=== PATIENT | female | born 1960 | race Caucasian/White ===

== ENCOUNTER 2018-01-31 06:29 | Day surgery (SDC) | payer BC ==
[~2018-01-31 06:29] MED LIST: Midazolam 1 MG/ML 2 ML SDV ONE; Sodium Chloride 0.9% 10 ML Syringe FLUSH PRN; fentaNYL 100 MCG/2 ML SDV ONE
[2018-01-31] MEDS ORDERED: fentaNYL 100 MCG/2 ML SDV IV ONE ×4 (06:30→07:12)
[2018-01-31] MEDS ORDERED: Midazolam 1 MG/ML 2 ML SDV IV ONE ×7 (06:30→07:09)
--- NOTE | 2018-01-31 07:49 | OR ---
DATE: 01/31/2018 PROCEDURE PERFORMED: Total colonoscopy and NBI. INSTRUMENT USED: PCF-H180 AL Olympus video colonoscope. PREMEDICATIONS: Fentanyl 125 mcg intravenous, Versed 4 mg intravenous. Nasal O2 cannula. The procedure was done under pulse oximetry, BP recording, and radiation monitor. INDICATION: Screening colonoscopic examination is done for detection of any polypoid lesions and removal, endoscopic hemostasis therapy if needed. Initial rectal exam showed large external hemorrhoidal tags. Rigid anoscopy showed moderate-sized internal hemorrhoids without bleeding from them. DESCRIPTION OF PROCEDURE: The colonoscope was passed with ease. Numerous scattered diverticula were noted in the distal left colon along with deformity. The scope was passed with ease up to the ileocecal area. There was moderate amount of fecal material that had to be aspirated clear. No bleeding was noted from any of the visualized areas at the commencement of the examination. Photographs were taken of the cecum showing angiodysplastic area without bleeding from it. NBI views were obtained. No stricture. No polypoid tumor mass identified. No evidence of diffuse inflammatory bowel disease in the form of friability, contact bleeding, or ulcerations. Probing the proximal sides of folds and flexures, using adequate distention and clearing up the stool material, withdrawal of the scope was made, cecum to rectum time over 6 minutes. No bleeding was noted from any of the visualized areas at the completion of examination. IMPRESSION: 1. External and internal hemorrhoids. 2. Diverticulosis. 3. Cecal angiodysplasia. The patient tolerated the procedure well. [facility] /[id number]
[2018-01-31] MEDS ORDERED: Sodium Chloride 0.9% 10 ML Syringe FLUSH PRN (08:00)
[2018-01-31] MEDS ORDERED: Dextrose 5%-0.45% NaCl 1,000 ML IV SCH (08:00)
== END 2018-01-31 09:33 | disposition home or self-care (01) ==
LOC: DL.ENDO 06:29
PROVIDERS: ATTEND Internal Medicine Gastroenterology
DX: Z12.11 Encounter for screening for malignant neoplasm of colon (principal); K55.20 Angiodysplasia of colon without hemorrhage; K57.30 Diverticulosis of large intestine without perforation or abscess without bleeding; K64.8 Other hemorrhoids; K64.4 Residual hemorrhoidal skin tags; Z87.891 Personal history of nicotine dependence
CPT/HCPCS: 45378; J2250; J3010; J7042

== ENCOUNTER 2022-08-08 21:06 | Emergency (ER) | payer BC ==
[2022-08-08 21:48] LABS: PTT,PARTIAL THROMBOPLSTIN TIME 30.9 SEC (22.0-34.0)
[2022-08-08 21:59] LABS: AMPHETAMINES,URINE NEGATIVE (NEGATIVE); BARBITURATES,URINE NEGATIVE (NEGATIVE); BENZODIAZEPINE,URINE NEGATIVE (NEGATIVE); MDMA (ECSTASY), URINE NEGATIVE (NEGATIVE); METHADONE,URINE NEGATIVE (NEGATIVE); METHAMPHETAMINES,URINE NEGATIVE (NEGATIVE); OPIATES,URINE NEGATIVE (NEGATIVE); OXYCODONE,URINE NEGATIVE (NEGATIVE); PHENCYCLIDINE,URINE NEGATIVE (NEGATIVE); TCA,URINE NEGATIVE (NEGATIVE)
[2022-08-08 21:59] LABS: ANION GAP 15.8 mEq/L (7-13); CHLORIDE,CL 102 mmol/L (98-107); SODIUM,NA 139 mmol/L (136-145)
[2022-08-08 22:02] LABS: ESTIMATED GFR 76 mL/min (>=60)
[2022-08-08 22:27] LABS: CORONAVIRUS COVID-19 NAA NEGATIVE (NEGATIVE); RESPIRATORY SYNCYTIAL VIR NAA NEGATIVE (NEGATIVE)
[2022-08-08] MEDS ORDERED: Ondansetron 4 MG/2 ML SDV IVPUSH ONE (22:33)
== END 2022-08-08 23:44 | disposition home or self-care (01) ==
LOC: DL.ED 21:06
DX: I49.3 Ventricular premature depolarization (principal); R11.2 Nausea with vomiting, unspecified; Z72.0 Tobacco use; Z20.822 Contact with and (suspected) exposure to COVID-19
CPT/HCPCS: 0241U; 36415; 71045; 80053; 80305; 80307; 81001; 82150; 83605; 83690; 83735; 83880; 84443; 84484; 85025; 85610; 85730; 86140; 93005; 99285; J2405

== ENCOUNTER 2023-08-04 02:24 | Inpatient (IN) | payer BC ==
[2023-08-04 03:10] LABS: BASOPHILS PERCENT AUTO 0.2 % (0.0-1.0); EOSINOPHILS PERCENT AUTO 0.9 % (1.0-3.0); HEMATOCRIT 42.7 % (37.0-47.0); HEMOGLOBIN 14.2 g/dL (12.0-16.0); LYMPHOCYTES PERCENT AUTO 8.3 % (20.5-50.1); MEAN CORPUSCULAR HEMOGLOBIN 31.5 pg (27.0-34.0); MEAN CORPUSCULAR HGB CONC 33.3 g/dL (33.0-35.0); MEAN CORPUSCULAR VOLUME 94.7 fL (80-100); MONOCYTES PERCENT AUTO 5.2 % (2-8); NEUTROPHILS PERCENT AUTO 85.4 % (42.2-75.2); PLATELET COUNT,PLT 269 10^3/uL (150-450); RED BLOOD CELL COUNT 4.51 10^6/uL (4.2-5.4)
[2023-08-04] MEDS: methylPREDNISolone Sodium Succinate 125 MG/2 ML SDV IVPUSH ONE (03:10)
[2023-08-04] MEDS: Sodium Chloride 0.9% 10 ML Syringe FLUSH PRN (03:18)
[2023-08-04] MEDS: Albuterol/Ipratropium 3.0-0.5 MG/3 ML Neb Soln NEB ONE (03:36)
[2023-08-04 03:37] LABS: B-TYPE NATRIURETIC PEPTIDE,BNP 242 pg/ml (0-100)
[2023-08-04 03:41] LABS: PROTHROMBIN TIME 10.5 SEC (9.0-12.0); PTT,PARTIAL THROMBOPLSTIN TIME 26.3 SEC (22.0-34.0)
[2023-08-04] MEDS: Sodium Chloride 0.9% 1,000 ML IV ONE (04:19)
[2023-08-04 04:23] LABS: A/G RATIO 0.9; ALANINE AMINOTRANSFERASE,ALT 33 U/L (14-59); ALBUMIN 3.6 g/dL (3.4-5.0); ALKALINE PHOSPHATASE 132 U/L (46-116); ANION GAP 15.5 mEq/L (7-13); ASPARTATE AMNIOTRANSFERASE,AST 24 U/L (15-37); BILIRUBIN TOTAL 0.6 mg/dL (0.2-1.0); BLOOD UREA NITROGEN,BUN 18 mg/dL (7-18); BUN/CREATININE RATIO 15.4 (No establ ref range); C-REACTIVE PROTEIN 0.62 ng/dL (<=0.50); CALCIUM 8.6 mg/dL (8.5-10.1); CARBON DIOXIDE,CO2 26 mmol/L (21-32); CHLORIDE,CL 100 mmol/L (98-107); CREATININE 1.17 mg/dL (0.55-1.02); GLUCOSE RANDOM 271 mg/dL (70-99); MAGNESIUM 1.8 mg/dL (1.8-2.4); POTASSIUM,K 3.5 mmol/L (3.5-5.1); PROTEIN TOTAL,TP 7.4 g/dL (6.4-8.2); SODIUM,NA 138 mmol/L (136-145)
[2023-08-04 04:25] LABS: LACTIC ACID 2.4 mmol/L (0.4-2.0)
[2023-08-04 04:26] LABS: ESTIMATED GFR 52 mL/min (>=60)
[2023-08-04 04:28] LABS: CORONAVIRUS COVID-19 NAA NEGATIVE (NEGATIVE); INFLUENZA A NAA NEGATIVE (NEGATIVE); INFLUENZA B NAA NEGATIVE (NEGATIVE)
[2023-08-04] MEDS: Piperacillin/Tazobactam 4.5 GM in Sodium Chloride 0.9% 100 ML IV ONE (04:49)
[2023-08-04 05:29] LABS: RESPIRATORY SYNCYTIAL VIR NAA NEGATIVE (NEGATIVE)
[2023-08-04] MEDS: Albuterol/Ipratropium 3.0-0.5 MG/3 ML Neb Soln ONE (07:16)
[2023-08-04] MEDS: Furosemide 40 MG/4 ML VIAL IV ONE (07:28)
[2023-08-04] MEDS ORDERED: Sennosides/Docusate Sodium 50-8.6 MG Tab PO PRN (10:52)
[2023-08-04] MEDS ORDERED: Acetaminophen 325 MG Tab PO PRN (10:52)
[2023-08-04] MEDS ORDERED: Polyethylene Glycol 3350 Powder 17 GM Packet PO PRN (10:52)
[2023-08-04] MEDS ORDERED: Magnesium Hydroxide 400 MG/5 ML Susp 30 ML Cup PO PRN (10:52)
[2023-08-04] MEDS ORDERED: Naloxone 2 MG/2 ML Syringe IVPUSH PRN (10:52)
[2023-08-04] MEDS ORDERED: Acetaminophen/oxyCODONE 325-5 MG Tab PO PRN (10:52)
[2023-08-04] MEDS ORDERED: Ondansetron 4 MG/2 ML SDV IVPUSH PRN (10:52)
[2023-08-04] MEDS ORDERED: Zolpidem 5 MG Tab PO PRN (10:52)
[2023-08-04] MEDS ORDERED: HYDROmorphone 0.5 MG/0.5 ML Syringe IVPUSH PRN (10:52)
[2023-08-04] MEDS ORDERED: Albuterol/Ipratropium 3.0-0.5 MG/3 ML Neb Soln NEB PRN (10:52)
[2023-08-04] MEDS ORDERED: guaiFENesin/Dextromethorphan 100-10 MG/5 ML Soln 5 ML Cup PO PRN (10:57)
[2023-08-04] MEDS ORDERED: Glucagon,Human Recombinant 1 MG Vial IM PRN (10:58)
[2023-08-04] MEDS ORDERED: 50% Dextrose in Water 50 ML Syringe IVPUSH PRN (10:58)
[2023-08-04] MEDS: Heparin Sodium 5,000 Units/ML Vial IVPUSH ONE ×2 (12:01→18:36)
[2023-08-04] MEDS: Heparin Sodium/0.45% NaCl 25,000 UNITS/500 ML BAG IV SCH (12:03)
[2023-08-04] MEDS: Aspirin 325 MG Tab PO ONE (12:06)
[2023-08-04] MEDS: Clopidogrel 75 MG Tab PO ONE (12:06)
[2023-08-04] MEDS: Pantoprazole 40 MG Vial IVPUSH ONE (12:11)
[2023-08-04] MEDS: Nicotine 21 MG/24 Hr Patch TRDERM SCH (12:11)
[2023-08-04] MEDS: Insulin Lispro 100 Units/ML 3 ML Vial SUBCUT SCH (12:11)
[2023-08-04] MEDS: Sodium Chloride 0.9% 1,000 ML IV SCH (12:11)
[2023-08-04] MEDS: Dexamethasone 4 MG/ML SDV IVPUSH SCH (12:11)
[2023-08-04] MEDS: Piperacillin/Tazobactam 4.5 GM in Sodium Chloride 0.9% 100 ML IV SCH (12:19)
[2023-08-04 12:31] LABS: CHOLESTEROL HDL 70 mg/dL (40-59); CHOLESTEROL LDL CALCULATED 118 mg/dL (0-100); CHOLESTEROL TOTAL 194 mg/dL (0-199); TRIGLYCERIDES 28 mg/dL (0-149)
[2023-08-04] MEDS: Pantoprazole 40 MG Tab.CR PO SCH (16:34)
[2023-08-04] MEDS: Formoterol/Mometasone 200-5 MCG 8.8 GM Inhaler IH SCH (17:12)
[2023-08-04] MEDS: Carvedilol 6.25 MG Tab PO ONE (18:35)
[2023-08-04] MEDS: Check Patch TRDERM SCH (20:21)
[2023-08-04] MEDS: Saccharomyces Boulardii (Probiotic) 250 MG Cap PO SCH (20:28)
[2023-08-04] MEDS: guaiFENesin 600 MG Tab.ER PO SCH (20:28)
[2023-08-04] MEDS: Gabapentin 300 MG Cap PO SCH (20:28)
[2023-08-05] MEDS: Heparin Sodium 5,000 Units/ML Vial IVPUSH ONE (00:28)
[2023-08-05] MEDS: Tiotropium Bromide 4 GM Inhalation Spray (2.5mcg/1 dose; 10 doses) INH SCH (05:03)
[2023-08-05 06:20] LABS: HEMATOCRIT 36.5 % (37.0-47.0); HEMOGLOBIN 12.2 g/dL (12.0-16.0); LYMPHOCYTES PERCENT AUTO 4.9 % (20.5-50.1); MEAN CORPUSCULAR HEMOGLOBIN 31.2 pg (27.0-34.0); MEAN CORPUSCULAR HGB CONC 33.4 g/dL (33.0-35.0); MEAN CORPUSCULAR VOLUME 93.4 fL (80-100); MONOCYTES PERCENT AUTO 7.4 % (2-8); NEUTROPHILS PERCENT AUTO 87.7 % (42.2-75.2); PLATELET COUNT,PLT 214 10^3/uL (150-450); RED BLOOD CELL COUNT 3.91 10^6/uL (4.2-5.4)
[2023-08-05 06:42] LABS: ALBUMIN 3.1 g/dL (3.4-5.0); ANION GAP 10.7 mEq/L (7-13); BILIRUBIN TOTAL 0.4 mg/dL (0.2-1.0); BUN/CREATININE RATIO 16.8 (No establ ref range); C-REACTIVE PROTEIN 1.38 ng/dL (<=0.50); CALCIUM 8.5 mg/dL (8.5-10.1); CREATININE 0.95 mg/dL (0.55-1.02); CREATININE 0.98 mg/dL (0.55-1.02); EST CRCL DRUG DOSING (CG) 56.68 mL/min; EST CRCL DRUG DOSING (CG) 58.47 mL/min; MAGNESIUM 1.9 mg/dL (1.8-2.4); POTASSIUM,K 3.7 mmol/L (3.5-5.1); PROTEIN TOTAL,TP 6.4 g/dL (6.4-8.2); VANCOMYCIN RANDOM 3.3 ug/mL (No Normal Range)
[2023-08-05 06:45] LABS: A/G RATIO 0.94
[2023-08-05] MEDS: Carvedilol 6.25 MG Tab PO SCH ×2 (08:57→17:50)
[2023-08-05] MEDS: Aspirin 81 MG Tab.Chew PO SCH (08:57)
[2023-08-05] MEDS: Furosemide 20 MG Tab PO SCH (08:58)
[2023-08-05] MEDS: VANCOmycin 1.5 GM/300 ML 1.5 GM in Premix Bag 1 BAG IV SCH (08:59)
[2023-08-05] MEDS ORDERED: Simvastatin 40 MG Tab PO SCH (21:00)
[2023-08-05] MEDS: Simvastatin 40 MG Tab PO SCH (21:04)
[2023-08-05] MEDS: Metoprolol Tartrate 5 MG/5 ML SDV IVPUSH ONE (23:14)
[2023-08-06 06:26] LABS: HEMATOCRIT 37.5 % (37.0-47.0); HEMOGLOBIN 12.5 g/dL (12.0-16.0); LYMPHOCYTES PERCENT AUTO 5.5 % (20.5-50.1); MEAN CORPUSCULAR HEMOGLOBIN 31.2 pg (27.0-34.0); MEAN CORPUSCULAR HGB CONC 33.3 g/dL (33.0-35.0); MEAN CORPUSCULAR VOLUME 93.5 fL (80-100); MONOCYTES PERCENT AUTO 6.9 % (2-8); NEUTROPHILS PERCENT AUTO 87.6 % (42.2-75.2); PLATELET COUNT,PLT 261 10^3/uL (150-450); RED BLOOD CELL COUNT 4.01 10^6/uL (4.2-5.4); WHITE BLOOD CELL COUNT,WBC 20.5 10^3/uL (5.0-10.0)
[2023-08-06 06:40] LABS: ALBUMIN 3.2 g/dL (3.4-5.0); ANION GAP 12.9 mEq/L (7-13); BILIRUBIN TOTAL 0.4 mg/dL (0.2-1.0); BUN/CREATININE RATIO 23.4 (No establ ref range); C-REACTIVE PROTEIN 0.71 ng/dL (<=0.50); CALCIUM 8.6 mg/dL (8.5-10.1); CREATININE 1.07 mg/dL (0.55-1.02); EST CRCL DRUG DOSING (CG) 54.92 mL/min; POTASSIUM,K 3.9 mmol/L (3.5-5.1); PROTEIN TOTAL,TP 6.8 g/dL (6.4-8.2)
[2023-08-06 06:42] LABS: A/G RATIO 0.89
[2023-08-06 06:55] LABS: T4 FREE 1.07 ng/dL (0.76-1.46); TSH ULTRASENSITIVE 2.6 uIU/mL (0.36-3.74)
[2023-08-06] MEDS: Digoxin 500 MCG/2 ML Amp IVPUSH ONE ×3 (08:28→17:27)
[2023-08-06] MEDS: Apixaban 5 MG Tab PO SCH (20:00)
[2023-08-07] MEDS ORDERED: Digoxin 500 MCG/2 ML Amp IVPUSH ONE
[2023-08-07 06:45] LABS: BASOPHILS PERCENT AUTO 0.1 % (0.0-1.0); HEMOGLOBIN 12.3 g/dL (12.0-16.0); LYMPHOCYTES PERCENT AUTO 6.1 % (20.5-50.1); MEAN CORPUSCULAR HEMOGLOBIN 31.2 pg (27.0-34.0); MEAN CORPUSCULAR HGB CONC 33.2 g/dL (33.0-35.0); MEAN CORPUSCULAR VOLUME 93.9 fL (80-100); MONOCYTES PERCENT AUTO 5.6 % (2-8); NEUTROPHILS PERCENT AUTO 88.2 % (42.2-75.2); PLATELET COUNT,PLT 210 10^3/uL (150-450); RED BLOOD CELL COUNT 3.94 10^6/uL (4.2-5.4); WHITE BLOOD CELL COUNT,WBC 13.8 10^3/uL (5.0-10.0)
[2023-08-07 07:10] LABS: ALANINE AMINOTRANSFERASE,ALT 52 U/L (14-59); ALBUMIN 3.2 g/dL (3.4-5.0); ALKALINE PHOSPHATASE 96 U/L (46-116); ASPARTATE AMNIOTRANSFERASE,AST 18 U/L (15-37); BILIRUBIN TOTAL 0.3 mg/dL (0.2-1.0); BLOOD UREA NITROGEN,BUN 18 mg/dL (7-18); BUN/CREATININE RATIO 15.9 (No establ ref range); CALCIUM 8.7 mg/dL (8.5-10.1); CARBON DIOXIDE,CO2 27 mmol/L (21-32); CHLORIDE,CL 102 mmol/L (98-107); CREATININE 1.13 mg/dL (0.55-1.02); EST CRCL DRUG DOSING (CG) 51.86 mL/min; GLUCOSE RANDOM 130 mg/dL (70-99); PROTEIN TOTAL,TP 6.7 g/dL (6.4-8.2); SODIUM,NA 138 mmol/L (136-145)
[2023-08-07 07:13] LABS: B-TYPE NATRIURETIC PEPTIDE,BNP 934 pg/ml (0-100)
[2023-08-07 07:15] LABS: A/G RATIO 0.91; C-REACTIVE PROTEIN < 0.50 ng/dL (<=0.50); ESTIMATED GFR 54 mL/min (>=60)
[2023-08-07] MEDS: Digoxin 125 MCG Tab PO SCH (09:24)
== END 2023-08-07 11:20 | disposition home or self-care (01) | DRG 720 ==
LOC: DL.ED 02:24 → DL.MS 06:24
PROVIDERS: ADMIT Internal Medicine; ATTEND Family Medicine Adult Medicine
PROC: 5A09357 Assistance with Respiratory Ventilation, Less than 24 Consecutive Hours, Continuous Positive Airway Pressure (ICD-10-PCS; principal; 2023-08-04)
PROC: 3E03329 Introduction of Other Anti-infective into Peripheral Vein, Percutaneous Approach (ICD-10-PCS; 2023-08-04)
DX: A41.9 Sepsis, unspecified organism (principal); J96.01 Acute respiratory failure with hypoxia; I21.4 Non-ST elevation (NSTEMI) myocardial infarction; J81.0 Acute pulmonary edema; N17.9 Acute kidney failure, unspecified; J18.9 Pneumonia, unspecified organism; E87.20 Acidosis, unspecified; I48.91 Unspecified atrial fibrillation; K52.9 Noninfective gastroenteritis and colitis, unspecified; M19.012 Primary osteoarthritis, left shoulder; G43.909 Migraine, unspecified, not intractable, without status migrainosus; H54.7 Unspecified visual loss; F17.210 Nicotine dependence, cigarettes, uncomplicated; R79.1 Abnormal coagulation profile; R73.9 Hyperglycemia, unspecified; R79.89 Other specified abnormal findings of blood chemistry; Z97.4 Presence of external hearing-aid; Z90.89 Acquired absence of other organs; Z98.51 Tubal ligation status; Z79.899 Other long term (current) drug therapy
CPT/HCPCS: 0241U; 36415; 71045; 80053; 80061; 80202; 82565; 82947; 83605; 83735; 83880; 84145; 84439; 84443; 84484; 85025; 85379; 85610; 85730; 86140; 87040; 87070; 87077; 87186; 87205; 93005; 94640; 94660; 94664; 97161-GP; 97165-GO; A9270-GY; C9113; J0282; J1100; J1160; J1644; J1940; J2543; J2930; J3370; J3490; J7030; J7050; J7620-GY

== ENCOUNTER 2024-02-02 04:17 | Emergency (ER) | payer BC ==
[2024-02-02 04:37] LABS: BASOPHILS PERCENT AUTO 0.2 % (0.0-1.0); EOSINOPHILS PERCENT AUTO 1.2 % (1.0-3.0); HEMATOCRIT 42.1 % (37.0-47.0); HEMOGLOBIN 13.8 g/dL (12.0-16.0); LYMPHOCYTES PERCENT AUTO 27.7 % (20.5-50.1); MEAN CORPUSCULAR HEMOGLOBIN 30.9 pg (27.0-34.0); MEAN CORPUSCULAR HGB CONC 32.8 g/dL (33.0-35.0); MEAN CORPUSCULAR VOLUME 94.2 fL (80-100); MONOCYTES PERCENT AUTO 8.9 % (2-8); PLATELET COUNT,PLT 273 10^3/uL (150-450); RED BLOOD CELL COUNT 4.47 10^6/uL (4.2-5.4)
[2024-02-02] MEDS: methylPREDNISolone Sodium Succinate 125 MG/2 ML SDV IVPUSH ONE (04:38)
[2024-02-02] MEDS: Magnesium Sulfate/Water Premix 2 GM in Premix Bag 1 BAG IV ONE (04:47)
[2024-02-02 05:01] LABS: LACTIC ACID 2.5 mmol/L (0.4-2.0)
[2024-02-02] MEDS: Albuterol/Ipratropium 3.0-0.5 MG/3 ML Neb Soln NEB ONE (05:01)
[2024-02-02 05:02] LABS: B-TYPE NATRIURETIC PEPTIDE,BNP 1430 pg/ml (0-100)
[2024-02-02 05:03] LABS: PROTHROMBIN TIME 10.4 SEC (9.0-12.0)
[2024-02-02 05:05] LABS: ALANINE AMINOTRANSFERASE,ALT 52 U/L (14-59); ALBUMIN 3.5 g/dL (3.4-5.0); ALKALINE PHOSPHATASE 136 U/L (46-116); ANION GAP 15.1 mEq/L (7-13); ASPARTATE AMNIOTRANSFERASE,AST 33 U/L (15-37); BILIRUBIN TOTAL 0.5 mg/dL (0.2-1.0); BLOOD UREA NITROGEN,BUN 14 mg/dL (7-18); BUN/CREATININE RATIO 11.8 (No establ ref range); CARBON DIOXIDE,CO2 23 mmol/L (21-32); CHLORIDE,CL 102 mmol/L (98-107); CREATININE 1.19 mg/dL (0.55-1.02); ESTIMATED GFR 51 mL/min (>=60); GLUCOSE RANDOM 286 mg/dL (70-99); MAGNESIUM 2.1 mg/dL (1.8-2.4); POTASSIUM,K 4.1 mmol/L (3.5-5.1); PROTEIN TOTAL,TP 7.1 g/dL (6.4-8.2); SODIUM,NA 136 mmol/L (136-145)
[2024-02-02 05:47] LABS: CORONAVIRUS COVID-19 NAA NEGATIVE (NEGATIVE); INFLUENZA A NAA NEGATIVE (NEGATIVE); INFLUENZA B NAA NEGATIVE (NEGATIVE)
[2024-02-02] MEDS: Furosemide 40 MG/4 ML VIAL IVPUSH ONE (05:52)
[2024-02-02] MEDS: cefTRIAXone 1 GM Vial IVPUSH ONE (05:52)
[2024-02-02] MEDS: Azithromycin 500 MG in Sodium Chloride 0.9% 250 ML IV ONE (05:53)
[2024-02-02] MEDS: Aspirin 81 MG Tab.Chew PO ONE (05:53)
[2024-02-02 06:57] LABS: APPEARANCE,URINE CLEAR (CLEAR); BILIRUBIN,URINE NEGATIVE (NEGATIVE); COLOR,URINE YELLOW (YELLOW); GLUCOSE,URINE NEGATIVE (NEGATIVE); KETONES,URINE NEGATIVE (NEGATIVE); LEUKOCYTE ESTERASE,URINE NEGATIVE (NEGATIVE); NITRITE,URINE NEGATIVE (NEGATIVE); OCCULT BLOOD,URINE SMALL (NEGATIVE); PH,URINE 5.5 (5.0-9.0); PROTEIN,URINE NEGATIVE (NEGATIVE); UROBILINOGEN,URINE 0.2 mg/dL (0.2-1.0)
[2024-02-02 07:12] LABS: BACTERIA,URINE RARE /HPF (0-FEW/HPF); EPITHELIAL CELLS,URINE RARE /HPF (NOT SEEN); MUCUS,URINE RARE /LPF (NOT SEEN); RBC,URINE 0-5 /HPF (0-5); WBC,URINE NOT SEEN /HPF (0-5/HPF)
== END 2024-02-02 06:55 ==
LOC: DL.ED 04:17
DX: A41.9 Sepsis, unspecified organism (principal); J18.9 Pneumonia, unspecified organism; I50.9 Heart failure, unspecified; N18.9 Chronic kidney disease, unspecified; R09.02 Hypoxemia; F17.210 Nicotine dependence, cigarettes, uncomplicated; I25.10 Atherosclerotic heart disease of native coronary artery without angina pectoris; I25.2 Old myocardial infarction; Z79.899 Other long term (current) drug therapy
CPT/HCPCS: 0240U; 36415; 71045; 80053; 81001; 82947; 83605; 83735; 83880; 84484; 85025; 85610; 87040; 93005; 94660; 96365; 96375; 99285; A9270; J0456; J0696; J1940; J2919; J3475; J7050; J7620-GY